=== PATIENT | male | born 1990 | race Caucasian/White ===

== ENCOUNTER 2020-11-26 08:52 | Emergency (ER) | payer SELFPAY ==
[2020-11-26 09:13] VITALS: BP 147/94
[2020-11-26] MEDS ORDERED: NEOMYCIN/POLYMYX/HC OTIC DROPS EACHEAR STA (09:29)
--- NOTE | 2020-11-26 09:32 | ED Physician Documentation ---
PD HPI HEENT - Stated complaint Stated Complaint: RT EAR PX - Chief complaint Chief Complaint: Heent - History obtained from History obtained from: Patient, Family - History of Present Illness Timing - onset: How many days ago (3) Timing - duration: Days (3) Timing - details: Gradual onset, Still present Location: Right ear Improves: Nothing Worsens: Everything Associated symptoms: Congestion, Rhinorrhea, Cough. No: Fever Similar symptoms before: Has not had sx before Recently seen: Clinic (for routine physical 3 m ago) - Additional information Additional information: Previously healthy 30-year-old male has developed pain in his right ear and muffled hearing he has had some congestion and he has pain to touch the ear he has swelling to the ear and he denies any recent swimming. He does get up to go to the bathroom at night more than twice. He has had a recent physical examination which she states was normal. Review of Systems Constitutional: denies: Fever Eyes: denies: Decreased vision Ears: reports: Loss of hearing, Ear pain, Drainage/discharge Nose: reports: Rhinorrhea / runny nose, Congestion Throat: reports: Sore throat Cardiac: denies: Chest pain / pressure, Palpitations Respiratory: reports: Cough (Usual morning cough not changed). denies: Dyspnea GI: denies: Abdominal Pain, Nausea, Vomiting : denies: Dysuria PD PAST MEDICAL HISTORY - Past Medical History Past Medical History: No - Past Surgical History Past Surgical History: No - Present Medications Home Medications: Ambulatory Orders Medication Instructions Recorded Confirmed Neomycin/Polymyx/Hc Otic Drops 4 drops OT TID #10 ml 11/26/20 [Cortisporin Ear Susp] - Allergies Allergies/Adverse Reactions: Allergies Allergy/AdvReac Type Severity Reaction Status Date / Time No Known Drug Allergies Allergy Verified 11/26/20 09:12 - Social History Does the pt smoke?: No Smoking Status: Never smoker Does the pt drink ETOH?: Yes Does the pt have substance abuse?: No - Immunizations Immunizations are current?: Yes - POLST Patient has POLST: No PD ED PE NORMAL - Vitals Vital signs reviewed: Yes (Hypertensive) - General General: Alert and oriented X 3, No acute distress, Well developed/nourished - HEENT HEENT: Atraumatic, PERRL, EOMI, Other (There is swelling to the right ear and pain to push on the tragus and pole on the pinna. There is erythema to the canal I'm unable to see the TM there is debris and drainage from the canal. The left ear is similarly affected to a much lesser extent.) - Neck Neck: Supple, no meningeal sign, No bony TTP - Cardiac Cardiac: RRR, No murmur - Respiratory Respiratory: No respiratory distress, Clear bilaterally - Abdomen Abdomen: Soft, Non tender - Back Back: No CVA TTP, No spinal TTP - Derm Derm: Normal color, Warm and dry, No rash - Extremities Extremities: No deformity, No edema - Neuro Neuro: Alert and oriented X 3, detail maker and fitter 2-12 intact, No motor deficit, No sensory deficit, Normal speech Eye Opening: Spontaneous Motor: Obeys Commands Verbal: Oriented GCS Score: 15 - Psych Psych: Normal mood, Normal affect Results - Vitals Vitals: Vital Signs - 24 hr 11/26/20 09:08 Temperature 37.2 C Heart Rate 95 Respiratory 18 Rate Blood Pressure 147/94 H O2 Saturation 96 Oxygen O2 Source Room air - Labs Labs: Laboratory Tests 11/26/20 09:39 POC Whole Bld Glucose 84 PD MEDICAL DECISION MAKING - ED course Complexity details: considered differential, d/w patient, d/w family ED course: 30-year-old male with acute otitis externa. He has a lot of swelling and erythema to the canal he does not have a history of water usage and I was concerned about the possibility of diabetes as he is getting up at night to go to the bathroom and I found that his fingerstick blood glucose randomly is 84. A [place] wick is instilled into the right ear as well as Cortisporin otic drops. Departure - Departure Disposition: 01 Home, Self Care Clinical Impression: Otitis externa Qualifiers: Otitis externa type: unspecified type Chronicity: acute Laterality: bilateral Qualified Code(s): H60.503 - Unspecified acute noninfective otitis externa, bilateral Instructions: ED Otitis Externa Follow-Up: Your, doctor [Other] Prescriptions: Neomycin/Polymyx/Hc Otic Drops [Cortisporin Ear Susp] 4 drops OT TID #10 ml Comments: Expect symptoms to improve day by day if you have worsening of your symptoms or new symptoms come back and see us.You will need to remove the wick from your ear in 1 to 2 days
== END 2020-11-26 10:03 | disposition home or self-care (01) ==
LOC: ED 08:52
DX: H60.503 Unspecified acute noninfective otitis externa, bilateral (principal); R35.1 Nocturia
CPT/HCPCS: 99282; 99284; A9270